=== PATIENT | female | born 1945 ===

== ENCOUNTER 2017-08-09 11:52 | Inpatient (IN) | payer MEDICARE ==
[2017-08-03 10:24] VITALS: BMI 24.9
[2017-08-09] MEDS ORDERED: Propofol 10 mg/ml Inj (20 ML) ONE (14:23)
[2017-08-09] MEDS ORDERED: Midazolam 2 MG/2 ML VIAL ONE (14:23)
[2017-08-09] MEDS ORDERED: Lidocaine Hydrochloride 5 ML INJ ONE (14:24)
[2017-08-09] MEDS ORDERED: Succinylcholine Chloride 20 mg/ml Syr (5 ml) IV ONE (14:24)
[2017-08-09] MEDS ORDERED: ceFAZolin IV 2 gm in Dextrose 1 GM/50 ML BAG IVPB ONE (14:39)
[2017-08-09] MEDS ORDERED: Iohexol 240 (50 ml) ONE (14:40)
[2017-08-09] MEDS ORDERED: Lactated Ringer's 1,000 ML IV ONE (14:45)
[2017-08-09] MEDS ORDERED: Oxycodone/Acetaminophen 5/325 mg Tab PO PRN (16:24)
[2017-08-09] MEDS ORDERED: oxyCODONE 5 mg Immediate Release Tab PO PRN (16:24)
[2017-08-09] MEDS: HYDROmorphone 0.5 mg/0.5 ml ISec IVP PRN ×4 (16:50→17:30)
[2017-08-09] MEDS: Dextrose 5%/0.45% NS 1,000 ML IV SCH (19:00)
[2017-08-10 01:16] VITALS: RESP 20
[2017-08-10] MEDS: Dextrose 5%/0.45% NS 1,000 ML IV SCH ×3 (01:48→23:01)
--- NOTE | 2017-08-10 03:36 | OP ---
PROCEDURE DATE: 08/09/2017 PREOPERATIVE DIAGNOSES: Chronic cholecystitis and cholelithiasis. POSTOPERATIVE DIAGNOSES: Chronic cholecystitis and cholelithiasis with multiple adhesions secondary to gastric surgery. PROCEDURE PERFORMED: Attempted laparoscopic cholecystectomy, open cholecystectomy with extensive lysis of adhesions and repair of small-bowel serosal tear. SURGEON: Kameron Loza MD PLATER APPRENTICE: Alverto Huddleston MD TYPE OF ANESTHESIA: General. ESTIMATED BLOOD LOSS: 100 mL. POSTOPERATIVE CONDITION: Stable. INDICATIONS FOR SURGERY: This is a 71-year-old female who in the past undergone 3 gastric procedures for ulcer disease, presents with chronic cholecystitis and cholelithiasis which has become debilitating, and now has been scheduled for an attempted laparoscopic cholecystectomy. GROSS FINDINGS: The patient upon periumbilical cutdown was found to have extensive adhesions in the right upper quadrant to the liver and a free track vision just could not be safely obtained laparoscopically, and for this reason approximately 5 to 10 minutes into the procedure, it was converted to an open procedure. Once open, the gallbladder was easily removed and all important structures including the common duct, cystic duct, and cystic duct and gallbladder junction were clearly identified. DESCRIPTION OF PROCEDURE: The patient was taken to the operating room. General anesthesia was administered. The abdomen was prepped and draped. Periumbilical cutdown was performed. Some blunt dissection was carried out digitally, some adhesions were surrounding around the wound and we attempted to do more digital dissection in the right upper quadrant; however, upon inserting a bluntport and looking with the laparoscope, there were so many adhesions which felt this was futile maneuver and the only way to remove the gallbladder would be in an open fashion, so the procedure was converted to an open and after the proper instrument tray was obtained, an incision was made in the right upper quadrant. The muscle groups were divided using the Bovie and the abdomen was entered. Multiple adhesions were lysed using the Metzenbaum scissors. A small-bowel serosal tear was repaired with silk. A bleeding mesenteric blood vessel was repaired with Prolene. After adhesions had been completely taken down off the liver and the gallbladder, the gallbladder was grasped with two large Pina clamps and the neck of the gallbladder was bluntly dissected free using a Peanut dissector. The gallbladder and cystic duct junction was identified as well as the cystic duct and common duct junction. Gallbladder was then taken off the gallbladder bed using the Bovie. After the base of the gallbladder was dissected free, the cystic duct was clipped using the laparoscopic clippers and divided. The cystic artery was clamped using the right angle and the specimen was removed. It was ligated with a heavy Vicryl suture. The wound was irrigated with saline until clear. Small rent in the liver was repaired with chromic, and Candelario drain was left in the gallbladder fossa and brought out through a lateral stab wound. The wound was closed in layers with Vicryl and then double-stranded PDS suture. The skin was closed with clips. The patient tolerated the procedure well, returned to recovery room in stable condition. Kameron Loza MD MTDD
[2017-08-10 07:19] LABS: BASO % 0.1 % (0.0-2.0); HEMATOCRIT 34.2 % (34.0-47.0); LYMPH # 0.3 K/uL (1.0-4.3); LYMPH % 3.9 % (20.0-40.0); MEAN CELL VOLUME 87.2 fL (81.0-99.0); MEAN CORPUSCULAR HEMOGLOBIN 28.9 pg (27.0-31.0); MEAN CORPUSCULAR HGB CONC 33.2 g/dL (33.0-37.0); MEAN PLATELET VOLUME 10.1 fL (7.2-11.7); MONO # 0.5 K/uL (0.0-0.8); MONO % 5.9 % (0.0-10.0); PLATELET COUNT 147 K/uL (130-400); RED CELL DISTRIBUTION WIDTH 13.8 % (11.5-14.5); WHITE BLOOD COUNT 8.2 K/uL (4.8-10.8)
[2017-08-10 07:36] LABS: CHLORIDE 99 mmol/L (98-107); SODIUM 136 mmol/L (132-148)
[2017-08-10 07:37] LABS: POTASSIUM 4.6 mmol/L (3.6-5.2)
[2017-08-10 07:39] LABS: ALB/GLOB RATIO 1.5 (1.0-2.1); ALKALINE PHOSPHATASE 66 U/L (38-126); ALT/SGPT 48 U/L (9-52); AST/SGOT 45 U/L (14-36); BILIRUBIN,TOTAL 0.5 mg/dL (0.2-1.3); BLOOD UREA NITROGEN 18 mg/dL (7-17); CARBON DIOXIDE 23 mmol/L (22-30); GFR AFRICAN-AMERICAN > 60; TOTAL PROTEIN 5.6 g/dL (6.3-8.3)
[2017-08-10 07:40] LABS: CALCIUM 8.2 mg/dl (8.6-10.4); GLUCOSE,RANDOM 173 mg/dL (65-105)
--- NOTE | 2017-08-10 08:13 | CP.PCM.PN ---
Subjective - Date & Time of Evaluation Date of Evaluation: 08/10/17 Time of Evaluation: 10:00 - Subjective Subjective: Dr. Delgado progress note: Patient is seen and examined in room. Patient reports having alot of abdominal pain, nausea, vomiting before surgery. She is sitting up in a chair and looks comfortable. Objective - Vital Signs/Intake and Output Vital Signs (last 24 hours): Temp Pulse Resp BP Pulse Ox 97.9 F 60 20 117/65 98 08/09/17 23:30 08/09/17 23:30 08/09/17 23:30 08/09/17 23:30 08/09/17 23:30 Intake and Output: 08/10/17 08/10/17 06:59 18:59 Intake Total 1160 Output Total 50 Balance 1110 - Medications Medications: Current Medications Docusate Sodium (Colace) 100 mg PO BID [facility] Last Admin: 08/09/17 19:00 Dose: 100 mg Enoxaparin Sodium (Lovenox) 30 mg SC DAILY [facility] Hydromorphone/Sodium Chloride (Dilaudid Scratcher Tender) 6 mg IV Q4H PRN; Protocol PRN Reason: Pain, moderate (4-7) Dextrose/Sodium Chloride (Dextrose 5%/0.45% Ns 1000 Ml) 1,000 mls @ 100 mls/hr IV .Q10H [facility] Last Admin: 08/10/17 01:48 Dose: Not Given Insulin Human Regular (Novolin R) 0 unit SC ACHS [facility] PRN Reason: Protocol Ondansetron HCl (Zofran Inj) 4 mg IVP Q6 PRN PRN Reason: Nausea/Vomiting Last Admin: 08/10/17 05:57 Dose: 4 mg Oxycodone/Acetaminophen (Percocet 5/325 Mg Tab) 1 tab PO Q4H PRN PRN Reason: BREAKTHROUGH PAIN Stop: 08/12/17 16:25 Pantoprazole Sodium (Protonix Inj) 40 mg IVP DAILY [facility] - Labs Labs: 08/10/17 07:07 08/10/17 07:07 - Constitutional Appears: Non-toxic, No Acute Distress - Eye Exam Eye Exam: Normal appearance Pupil Exam: NORMAL ACCOMODATION - Respiratory Exam Respiratory Exam: Clear to Ausculation Bilateral. absent: Rales, Rhonchi, Wheezes - Cardiovascular Exam Cardiovascular Exam: REGULAR RHYTHM, RRR, +S1, +S2. absent: Gallop, Rubs - GI/Abdominal Exam GI & Abdominal Exam: Soft, Tenderness, Hypoactive Bowel Sounds. absent: Normal Bowel Sounds - Extremities Exam Extremities Exam: Normal Inspection. absent: Calf Tenderness, Pedal Edema - Neurological Exam Neurological Exam: Alert - Psychiatric Exam Psychiatric exam: Normal Affect, Normal Mood - Skin Skin Exam: Normal Color Assessment and Plan (1) Status post surgery Assessment & Plan: Medical consult for DM, she is status post surgery day 1 open cholecystectomy. She is on a liquid diet. Status: Acute (2) Diabetes mellitus Assessment & Plan: accu checks, sliding scale insulin, and metformin 500mg bid. Status: Acute (3) Prophylactic measure Assessment & Plan: protonix 40mg SCDs, Lovenox Status: Acute - Assessment and Plan (Free Text) Assessment: medical management per Dr. Delgado.
[2017-08-10 09:00] LABS: NEUTROPHIL 88 % (50-75); TOTAL CELLS COUNTED 100
[2017-08-10] MEDS: Enoxaparin 30 mg Syringe SC SCH (10:00)
[2017-08-10] MEDS: (Novolin R) Insulin Human Regular 100 units/ml vial SC SCH ×3 (12:04→22:00)
[2017-08-10] MEDS ORDERED: Alum-Mag Hydrox-Simethicone Susp (30 mL) PO ONE (13:45)
--- NOTE | 2017-08-10 15:46 | PN ---
DATE: 08/10/2017 SUBJECTIVE: The patient is postoperative day #1. She is resting in bed; however, has been vomiting throughout the day. She is not complaining of any excessive abdominal pain, just nausea with nonbilious vomiting. PHYSICAL EXAMINATION: VITAL SIGNS: Her temperature is 98.1, pulse rate is 58, blood pressure is 119/66, and O2 saturation is 97% on room air. GENERAL: The dressing is clean and dry. ABDOMEN: Nontender, except for the right upper quadrant with incisional tenderness. There were decreased bowel sounds. The Anibal-Altman drain was draining 50 mL of serosanguineous fluid. IMPRESSION AND PLAN: The patient has a postoperative bilious secondary to open cholecystectomy with lysis of adhesions and repair of the small bowel serosal tear. She will be kept on a liquid diet and undergoing obstructive series in the morning, otherwise she is stable. We will continue to hydrate her and follow her closely. Her Percocet and Feosol were stopped, as these can contribute to nausea and she was placed tramadol. Kameron Loza MD
[2017-08-10] MEDS: Tramadol 25 mg PO SCH (18:30)
[2017-08-11] MEDS: Dextrose 5%/0.45% NS 1,000 ML IV SCH ×2 (00:26→14:21)
[2017-08-11] MEDS: (Novolin R) Insulin Human Regular 100 units/ml vial SC SCH ×4 (08:57→21:24)
[2017-08-11] MEDS: Tramadol 25 mg PO SCH ×3 (10:16→17:25)
[2017-08-11] MEDS: Enoxaparin 30 mg Syringe SC SCH (10:16)
[2017-08-11 16:57] LABS: EOS % 0.7 % (0.0-4.0); MONO # 0.6 K/uL (0.0-0.8); RED CELL DISTRIBUTION WIDTH 13.7 % (11.5-14.5)
[2017-08-11 17:05] LABS: CHLORIDE 98 mmol/L (98-107); POTASSIUM 3.9 mmol/L (3.6-5.2); SODIUM 137 mmol/L (132-148)
[2017-08-11 17:07] LABS: BILIRUBIN,TOTAL 0.5 mg/dL (0.2-1.3); GFR AFRICAN-AMERICAN > 60
[2017-08-11 17:08] LABS: ALB/GLOB RATIO 1.4 (1.0-2.1); ALKALINE PHOSPHATASE 66 U/L (38-126); ALT/SGPT 41 U/L (9-52); AST/SGOT 26 U/L (14-36); BLOOD UREA NITROGEN 10 mg/dL (7-17); CARBON DIOXIDE 25 mmol/L (22-30); GLUCOSE,RANDOM 111 mg/dL (65-105); TOTAL PROTEIN 5.9 g/dL (6.3-8.3)
[2017-08-11 17:09] LABS: CALCIUM 8.4 mg/dl (8.6-10.4)
[2017-08-11 17:47] LABS: BASO % 0.1 % (0.0-2.0); EOS # 0.1 K/uL (0.0-0.7); HEMATOCRIT 34.3 % (34.0-47.0); LYMPH # 0.6 K/uL (1.0-4.3); LYMPH % 7.9 % (20.0-40.0); MEAN CELL VOLUME 87.5 fL (81.0-99.0); MEAN CORPUSCULAR HEMOGLOBIN 28.8 pg (27.0-31.0); MEAN CORPUSCULAR HGB CONC 32.9 g/dL (33.0-37.0); MEAN PLATELET VOLUME 9.9 fL (7.2-11.7); MONO % 8.2 % (0.0-10.0); PLATELET COUNT 127 K/uL (130-400)
[2017-08-11 23:01] LABS: NEUTROPHIL 82 % (50-75); TOTAL CELLS COUNTED 100
[2017-08-11 23:02] LABS: LARGE PLATELETS PRESENT; SMUDGE CELLS PRESENT
[2017-08-12] MEDS: (Novolin R) Insulin Human Regular 100 units/ml vial SC SCH ×2 (08:12→12:05)
[2017-08-12] MEDS: Tramadol 25 mg PO SCH ×2 (10:09→14:07)
[2017-08-12] MEDS: Enoxaparin 30 mg Syringe SC SCH (10:10)
[2017-08-12 18:18] VITALS: BP 152/80; PULSE 66; TEMP 98.2; O2SAT 96
--- NOTE | 2017-08-12 18:52 | RAD ---
PROCEDURE: Radiographs of the chest and abdomen (obstructive series) HISTORY: Vomiting. Status post open cholecystectomy. COMPARISON: . Comparison made with prior chest radiograph dated 08/03/2017 TECHNIQUE: AP radiograph of the chest, with upright and supine radiographs of the abdomen. FINDINGS: CHEST: Poor inspiration with low lung volumes, crowded bronchovascular markings and mild bibasilar atelectasis. There is also a more discrete area of what is felt to represent discoid type atelectasis in the left mid to lower lung field. ABDOMEN AND PELVIS: Multiple air-filled loops of small bowel are present with air seen throughout the colon. Findings likely represent a postoperative ileus. Metallic clips right upper quadrant of the abdomen consistent with prior cholecystectomy. Metallic clips also seen in the left parasagittal upper abdomen near the region the EG junction. There are also chain sutures left upper quadrant of the abdomen. Clinic correlation with surgical history recommended. Skin closure reed over the right costal margin. There also appears to be an in situ right-sided drainage catheter. IMPRESSION: Poor inspiration with low lung volumes, crowded bronchovascular markings and mild bibasilar atelectasis. There is also a more discrete area of what is felt to represent discoid type atelectasis left mid to lower lung field Status post cholecystectomy with what probably represents postoperative ileus and in situ drainage catheter right upper quadrant of the abdomen as above continued follow-up recommended.
== END 2017-08-12 17:33 | disposition home or self-care (01) | DRG 415 ==
LOC: C.SDS 11:52 → C.9S 16:21 → C.6T 18:21
PROVIDERS: ADMIT Surgery; ATTEND Surgery
PROC: 0FJ44ZZ Inspection of Gallbladder, Percutaneous Endoscopic Approach (ICD-10-PCS; 2017-08-09)
PROC: 0FT40ZZ Resection of Gallbladder, Open Approach (ICD-10-PCS; principal; 2017-08-09 13:30)
DX: K80.10 Calculus of gallbladder with chronic cholecystitis without obstruction (principal); S36.439A Laceration of unspecified part of small intestine, initial encounter; K56.7 Ileus, unspecified; E11.9 Type 2 diabetes mellitus without complications; Y69 Unspecified misadventure during surgical and medical care; K66.0 Peritoneal adhesions (postprocedural) (postinfection); Z53.31 Laparoscopic surgical procedure converted to open procedure; Z79.4 Long term (current) use of insulin